=== PATIENT | male | born 1950 | race Caucasian/White ===

== ENCOUNTER 2017-04-19 06:52 | Day surgery (SDC) | payer MEDICARE, OTHER ==
[~2017-04-19] VITALS: Ht 170.2 cm; Wt 77.2 kg
[2017-04-19 09:10] VITALS: BP 142/80; PULSE 54; TEMP 97.9
[2017-04-19] MEDS ORDERED: MULTIPLE VITAMI1 CAP PO (09:19)
[2017-04-19] MEDS ORDERED: EPA FISH OIL1 SGL PO (09:19)
[2017-04-19] MEDS ORDERED: PLAVIX 75MG TAB75 MG PO (09:20)
[2017-04-19] MEDS ORDERED: TENORMIN 2525 MG/TAB PO (09:20)
[2017-04-19] MEDS ORDERED: ZOCOR 20MG20 MG PO (09:20)
[2017-04-19 15:25] VITALS: BP 134/75; PULSE 56; TEMP 97.8
[2017-04-19 15:40] VITALS: BP 140/76; PULSE 53
[2017-04-19] MEDS ORDERED: NORCO 325 MG-7.1 TAB PO (15:50)
[2017-04-19 15:55] VITALS: BP 135/75; PULSE 55
== END 2017-04-19 16:41 | disposition home or self-care (01) ==
LOC: SDCO 06:52
DX: C43.59 Malignant melanoma of other part of trunk (principal); I10 Essential (primary) hypertension; E78.00 Pure hypercholesterolemia, unspecified; I25.10 Atherosclerotic heart disease of native coronary artery without angina pectoris; Z79.01 Long term (current) use of anticoagulants; Z95.1 Presence of aortocoronary bypass graft; Z82.49 Family history of ischemic heart disease and other diseases of the circulatory system; Z80.0 Family history of malignant neoplasm of digestive organs; Z80.8 Family history of malignant neoplasm of other organs or systems
CPT/HCPCS: A9541; J0690; J1100; J2270; J2405; J2704; J3010; J7120

== ENCOUNTER 2019-01-22 05:52 | Day surgery (SDC) | payer MEDICARE, OTHER ==
[2019-01-22] VITALS (15 sets, daily range): BP systolic 106–140; BP diastolic 62–86; PULSE 52–93; TEMP 97.5–98.7
[~2019-01-22] VITALS: Ht 170.2 cm; Wt 71.1 kg
[~2019-01-22 05:52] MED LIST: EPA FISH OIL1 SGL PO; MULTIPLE VITAMI1 CAP PO; NORCO 325 MG-7.1 TAB PO; PLAVIX 75MG TAB75 MG PO; PRAVACHOL 20MG20 MG PO; TENORMIN 2525 MG/TAB PO
[2019-01-22 06:51] LABS: HEMATOCRIT 46.8 % (42.0-52.0); MEAN CELL VOLUME 92 fl (80.0-100.0); MEAN CORPUSCULAR HEMOGLOBIN 32 pg (27.0-31.0); MEAN CORPUSCULAR HGB CONC 34 g/dl (33.0-37.0); MEAN PLATELET VOLUME 10.8 fl (7.4-10.4); PLATELET COUNT 166 K/mm3 (130-400); RED BLOOD COUNT 5.08 M/mm3 (4.20-5.60); REDCELL DISTRIBUTION WIDTH-CV 11.9 % (11.5-14.5)
[2019-01-22 06:55] LABS: PROTHROMBIN TIME 12.2 SECONDS (9.7-12.8)
[2019-01-22 07:01] LABS: CALCIUM 9.2 mg/dL (8.4-10.2); CREATININE, serum 0.85 (0.66-1.25); POTASSIUM 4.2 mmol/L (3.4-5.0)
--- NOTE | 2019-01-22 08:02 | NUR ---
Dr. Dunaway in to see pt prior to procedure. Informed consent obtained. Will proceed to lab once MD has answered all pt and family questions.
--- NOTE | 2019-01-22 08:10 | NUR ---
Pt to procedure,report to Anthony Valadez
--- NOTE | 2019-01-22 08:31 | NUR ---
SEE MERGE REPORT FOR MEDICATION ADMINISTRATION TIMES WELL INTRA/POST SEDATION ASSESSMENTS.
--- NOTE | 2019-01-22 10:48 | NUR ---
PT ARRIVES FROM [facility] FOLLOWING PACEMAKER PLACEMENT, PT IS AWAKE, OX4, IN NO DISTRESS. PT REPORTS SOME TENDERNESS TO L CHEST AT INCISION SITE, RATES PAIN AT 2/10. PT IS REQUESTING BREAKFAST AND DENIES NAUSEA. VS OBTAINED AND WNL. CALL LIGHT WITHIN REACH. ICE APPLIED TO SURGICAL SITE.
--- NOTE | 2019-01-22 18:42 | NUR ---
PT HAS HAD A GOOD DAY FOLLOWING HIS PACEMAKER PLACEMENT. PT DENIES PAIN THROUGHOUT SHIFT, REPORTS SOME "ACHING" TO LEFT SHOULDER AT INCISION SITE WITH RELIEF FOLLOWING [facility] ADMINISTRATION. PT APPETITE IS GOOD WITH NO N/V. HAS AMBULATED WITH ASSIST TO THE BR WITH NO ISSUES. VS REMAIN WNL. CALL LIGHT WITHIN REACH.
--- NOTE | 2019-01-22 19:28 | NUR ---
PT IN BED WITH HOB AT 60 DEGREE ANGLE. ADVISED PT THAT HOB NEEDS TO STAY UP AT A 30 DEGREE ANGLE AND TO WEAR SLING ALL NIGHT. PT ATE 100% OF HIS SUPPER. AT BEDSIDE. NO C/O PAIN AT THIS TIME. ICE PACK TO LEFT UPPER CHEST OVER INCISION SITE. NO NEEDS AT THIS TIME, CALL LIGHT WITHIN REACH. WILL STAY OVERNIGHT WITH PT.
--- NOTE | 2019-01-22 22:04 | NUR ---
WALKED PT ON WHOLE 3RD FLOOR X3 AND ACCOMPANIED US. PT AMBULATED WITH NO ASSISTIVE DEVICE AND GAIT WAS STEADY. PT ADVISES THAT HE FEELS FINE AND WILL GO HOME TOMORROW. BROUGHT BACK TO ROOM AND PT AMBULATES IN ROOM INDEPENDENTLY. GAVE FRESH ICE PACK FOR LEFT UPPER CHEST AREA, DRSG CLEAN, DRY, AND INTACT. CALL LIGHT WITHIN REACH AND IN ROOM.
[2019-01-23 04:23] VITALS: BP 123/78; PULSE 68; TEMP 98
[2019-01-23 07:06] VITALS: BP 126/70; PULSE 68; TEMP 98.4
--- NOTE | 2019-01-23 07:24 | NUR ---
UNEVENTFUL NIGHT FOR PT. PT HAD NO C/O PAIN OR DISCOMFORT. PT KEPT ICE PACK ON UPPER LEFT CHEST MOST OF THE NIGHT. CALL LIGHT WITHIN REACH AND AT BEDSIDE.
--- NOTE | 2019-01-23 08:04 | NUR ---
PT REPORTS HAVING A GOOD NIGHT, DENIES ANY PAIN, REPORTS SOME ACHING TO INCISIONAL SITE. DRESSING IS CDI, ICE PACK APPLIED. PT IS ALERT, OX4; DENIES ANY NEEDS.
--- NOTE | 2019-01-23 10:37 | NUR ---
Initial visit; Patient thanked Exercise Science Instructor for looking in on him and offering God's blessings.
[2019-01-23 11:50] VITALS: BP 114/65; PULSE 60; TEMP 98.4
--- NOTE | 2019-01-23 15:05 | NUR ---
DR WAGNER IN ROOM TO SEE PT, POC DISCUSSED.
[2019-01-23] MEDS ORDERED: CEPHALEXIN500 M1 PO (15:18)
--- NOTE | 2019-01-23 15:22 | NUR ---
CARRI met with patient and to discuss discharge planning. Patient was seen by cardiology and he will be discharged later this afternoon. Patient lives independently at home with his . Patient's PCP is Dr Negrete on . Patient also obtains medications on as well. Patient is independent with all ADLs and does not use any DME or home health services. No discharge needs.
--- NOTE | 2019-01-23 16:57 | NUR ---
DC INSTRUCTIONS, MEDICATIONS, SITE CARE REVIEWED WITH PT AND ; VERBALIZES UNDERSTANDING, COPIES PROVIDED TO PT. PT LEFT AT 1620 PER WC THROUGH FRONT DOORS ACCOMAPNIED BY .
== END 2019-01-23 16:25 | disposition home or self-care (01) ==
LOC: COL.CAR 05:52 → MEDICAL 09:59 → COL.CAR 01-23 16:25
PROVIDERS: Internal Medicine Cardiovascular Disease
DX: I49.5 Sick sinus syndrome (principal); R55 Syncope and collapse; I25.10 Atherosclerotic heart disease of native coronary artery without angina pectoris; I10 Essential (primary) hypertension; E78.5 Hyperlipidemia, unspecified; I35.1 Nonrheumatic aortic (valve) insufficiency; Z79.02 Long term (current) use of antithrombotics/antiplatelets; Z95.1 Presence of aortocoronary bypass graft; Z82.49 Family history of ischemic heart disease and other diseases of the circulatory system
CPT/HCPCS: OP; J0690; J2250; J3010; J7030

== ENCOUNTER → 2020-12-15 | Outpatient (CLI) | payer MEDICARE, OTHER ==
[~2020-12-15] MED LIST changes: +CEPHALEXIN500 M1 PO
== END ==
LOC: COL.RAD 07:31
DX: M75.121 Complete rotator cuff tear or rupture of right shoulder, not specified as traumatic (principal); M75.51 Bursitis of right shoulder